=== PATIENT | female | born 1970 | race Caucasian/White ===

== ENCOUNTER → 2020-03-28 12:18 | Outpatient (CLI) | payer BC, SELFPAY ==
--- NOTE | 2020-03-28 12:31 | XR_ITS ---
PROCEDURE: XR RIBS RT MIN 3V W CXR1V Patient Age:49Y CLINICAL INDICATION: RIGHT RIB PAIN Right chest pain 2 years. No known injury COMPARISON: No exams were available for comparison FINDINGS: FRONTAL CXR view of the chest shows. No active disease. No pneumonia... No pneumothorax no pleural effusion.. Incidental note is made of 11 mm solitary lung nodule projected over the inferior margin of the anterior 2nd rib, midclavicular line on the frontal projection. This nodule seen and further confirmed at [facility] on oblique views. Moderate density could be a granuloma but no definitive calcification by CXR. Thus CT chest recommended, if no prior chest studies available elsewhere to confirm stability Multiple views of the RIGHT RIBS were obtained. No acute findings., no fracture or rib lesion evident. Vague bilateral breast implants incidentally noted. Views of thoracic spine show no acute findings, no prominent findings. only note developing marginal osteophytes anterior and to the right throughout mid and lower T-spine. IMPRESSION: 1..Incidental 11 mm solitary lung nodule left upper lobe . Recommend CT chest to further evaluate particular with history of smoking (unless outside CXR available to shows this is a stable feature.) 2..right Ribs Intact/. Negative right ribs and right chest Dictated by: Russell Delgado MD 03/28/2020 14:17 Electronically signed by Russell Delgado MD in [facility] 03/28/2020 14:17
== END ==
PROVIDERS: PCP Family Medicine; Referring Provider Family Medicine; Visit Provider Family Medicine
DX: R07.81 Pleurodynia (principal)
CPT/HCPCS: 71101

== ENCOUNTER → 2020-04-06 13:39 | Outpatient (CLI) | payer BC, SELFPAY ==
--- NOTE | 2020-04-06 13:45 | CT_ITS ---
PROCEDURE: CT CHEST W CON CLINCAL INDICATION: LUNG NODULE, SOLITARY Solitary pulmonary nodule COMPARISON: XR RIBS RT MIN 3V W CXR1V from 03/28/2020 TECHNIQUE: IV Contrast: 75ml Optiray 350 Axial images obtained with sagittal and coronal reformats. All CT scans at the facility use one or more dose reduction, viz: automated exposure control, ma/kV adjustment per patient size (including targeted exams where dose is matched to indication, i.e. head), or iterative reconstruction technique. FINDINGS: HEART AND MEDIASTINAL STRUCTURES: There are a few small mediastinal nodes measuring up to 14 mm in the pre carinal region and 10 x 6 mm in the AP window area. No evidence of aortic aneurysm or dissection. LUNGS AND PLEURAL SPACES: Changes of COPD. There is a 6 mm noncalcified nodule in the right upper lobe centrally. Image 29 series 3 there is a noncalcified 10 mm nodule in the left upper lobe image 18 series 3 corresponding to the radiographic abnormality. There is some minimal spiculation of the margins of this nodule. No effusions or infiltrates. BONY STRUCTURES: No acute bony abnormalities apparent. UPPER ABDOMEN: There is some scarring in the upper pole both kidneys with cystic changes in the upper pole of the right kidney measuring 2.8 x 1.8 cm ADDITIONAL FINDINGS: There are bilateral subpectoral breast implants IMPRESSION: 1. There is a suspicious 10 mm noncalcified nodule in the left upper lobe. There is some minimal spiculation of the margins. Suggest PET-CT for further evaluation. In addition, there is a 6 mm nodule in the right upper lobe which may be too small to be evaluated by PET-CT. 2. COPD with other nonacute findings as described above. Dictated b Indio Crawford MD 04/07/2020 18:32 Indio Crawford MD in [facility] 04/07/2020 18:32
== END ==
PROVIDERS: PCP Family Medicine; Visit Provider Family Medicine
DX: R91.1 Solitary pulmonary nodule (principal)
CPT/HCPCS: 71260; Q9967

== ENCOUNTER 2020-05-01 10:00 | Outpatient (RCR) | payer BC, SELFPAY ==
--- NOTE | 2020-04-06 13:49 | HMH.OTOPEV ---
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 Pt explains she has been having symptoms of tingling/numbness of both hands for ~3 years now . Normally pt's symptoms begin when she has been using hands for a while. Pt demonstrates with a slight decrease of arom in bilateral wrist extension. Pt also has decreased strength in bilateral wrists. 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 Pt is right hand dominant. Pt will continue to be seen in order to address these issues to increase functional use of bilateral hands. Chief Complaint Weakness,Decreased Enamel Burner Strength,Decreased Coordination Symptom Type Burning,Tingling Symptoms Relieved By Rest/Positioning Symptoms Aggravated By Physical Activity,Lifting Prior Functional Limitations Lifting,Housework,Dressing, Desk Work/Reading,Driving, Sleeping,Recreation Activity Current Functional Limitations None Symptom Description Intermittent,Activity Dependent Level of pain today (0-10) 4 Pain scale - at its best (0-10) 0 Pain scale - at its worst (0-10) 6 Wrist/Hand Eval Wrist Range of Motion Left Wrist Limitations of Range of Motion Muscle Weakness Wrist Extension Active Range of Motion ( 50 degrees degrees) Wrist Flexion Active Range of Motion ( 70 degrees degrees) Wrist Radial Deviation Active Range of 25 degrees Motion (degrees) Wrist Ulnar Deviation Active Range of 25 degrees Motion (degrees) Right Wrist Extension Active Range of Motion ( 50 degrees degrees) Wrist Flexion Active Range of Motion ( 65 degrees degrees) Wrist Radia
== END 2020-05-01 11:00 | disposition home or self-care (01) ==
LOC: OT 10:00
PROVIDERS: Visit Provider Family Medicine
DX: G56.03 Carpal tunnel syndrome, bilateral upper limbs (principal)
CPT/HCPCS: 97014; 97033; 97035; 97110; 97140; 97165; G0283

== ENCOUNTER → 2021-07-05 09:39 | Outpatient (CLI) | payer OTHER, SELFPAY | PROVIDERS: PCP Family Medicine; Visit Provider Nurse Practitioner | DX: Z20.822 Contact with and (suspected) exposure to COVID-19 (principal) | CPT/HCPCS: C9803; U0003; U0005 ==

== ENCOUNTER → 2021-07-23 11:53 | Outpatient (CLI) | payer SELFPAY ==
--- NOTE | 2021-07-23 11:57 | XR_ITS ---
PROCEDURE: XR LUMBAR SPINE MIN 4V CLINICAL INDICATION: ACUTE RT-SIEDED LOW BACK PAIN W/ RT SIDED SCIATICA COMPARISON: No exams were available for comparison FINDINGS: Normal alignment. No acute fracture or dislocation. Small endplate osteophytes are present at L4-5. No lytic or blastic change. Along the left lateral aspect of the L3 transverse process there is a small calcific density measuring approximately 4 mm. This could represent a ureteral calculus versus ununited ossification center of the tip of the transverse process. Degenerative changes left SI joint with mild sclerosis. Facet hypertrophic changes from L3-S1. IMPRESSION: Degenerative changes as described above. Possible left mid ureteral stone Dictated by: Indio Crawford MD 07/23/2021 14:49 Indio Crawford MD in [facility] 07/23/2021 14:49
== END ==
PROVIDERS: PCP Family Medicine; Visit Provider Nurse Practitioner Family
DX: M54.41 Lumbago with sciatica, right side (principal)
CPT/HCPCS: 72110

== ENCOUNTER → 2022-01-03 13:03 | Outpatient (CLI) | payer OTHER, SELFPAY ==
--- NOTE | 2022-01-03 13:37 | MM_ITS ---
PROCEDURE INFORMATION: Exam: MG Bilateral Screening 3D Mammography Exam date and time: 01/03/2022 1:32 PM Age: 51 years old Clinical indication: Screening examination. Her maternal grandmother had post menopausal breast cancer. TECHNIQUE: Imaging protocol: Bilateral Screening tomosynthesis and 2D mammography including computer-aided detection (CAD) when performed. COMPARISON: No relevant prior studies available. If prior mammograms are provided, I am happy to add an addendum. FINDINGS: MAMMOGRAPHY: Breast composition: The breasts are heterogeneously dense, which may obscure small masses. Mass: Possible 1.6 cm rounded mass, partly obscured, in the left upper outer quadrant posterior 3rd, best seen in the MLO image [id number], frame 10 than in the CC image 1377, frame 17. Architectural distortion: None. Calcifications: No suspicious calcifications. Asymmetric density: None. Skin thickening: None. Axillary adenopathy: None. Implants: Subpectoral saline implants. IMPRESSION: Patient to be recalled for left diagnostic mammogram with CCand MLO spot compression as well as left breast ultrasound for further evaluation of possible left breast mass. ASSESSMENT: BI-RADS Category 0: Incomplete- Need Additional Imaging Evaluation and/or Prior Mammograms for Comparison
== END ==
PROVIDERS: PCP Family Medicine; Visit Provider Family Medicine
DX: Z12.31 Encounter for screening mammogram for malignant neoplasm of breast (principal)
CPT/HCPCS: 77063; 77067

== ENCOUNTER → 2022-05-20 13:44 | Outpatient (CLI) | payer OTHER, SELFPAY ==
--- NOTE | 2022-05-20 13:47 | MM_ITS ---
PROCEDURE INFORMATION: Exam: US Left Breast, Complete MG Left Diagnostic Breast Tomosynthesis Exam date and time: 05/20/2022 2:43 PM Age: 51 years old Clinical indication: Recall on the basis of screening mammogram 01/03/2022 for further evaluation of possible left breast mass. TECHNIQUE: Imaging protocol: Complete ultrasound of all four quadrants of the Left breast and the retroareolar regions, including ultrasound of the axilla when performed. Left Diagnostic tomosynthesis and 2D mammography including computer-aided detection (CAD) when performed. Unilateral or bilateral exam. COMPARISON: MG MM DIG MAMM DX UNILAT LT CAD 05/20/2022 1:47 PM FINDINGS: MAMMOGRAPHY: Rounded 1.6 cm mass in the upper outer quadrant posterior 3rd is less well seen on the 2D spot compression which may be from positioning as well. ULTRASOUND: Left sonography, all 4 quadrants, retroareolar and axilla. Corresponding to the palpable concern at 2 o'clock 4 cm from the nipple is an oval heterogeneous mass measuring 1.5 x 0.9 x 1.5 cm with no related Doppler flow, and is the best correlate for the mammographic mass - this may be complex cystic or solid. Scattered likely complicated cysts are noted at 3 o'clock 3 cm from the nipple measuring 0.5 x 0.2 x 0.4 cm, at 4 o'clock 3 cm from the nipple measuring 0.5 by 0.4 x 0.2 cm, at 5 o'clock 2 cm from the nipple measuring 0.5 x 0.4 by 0.5 cm, at 6 o'clock 4 cm from nipple measuring 0.4 x 0.3 x 0.3 cm. Partly visualized breast implant. Sonographically unremarkable left axillary lymph nodes. IMPRESSION: Recommend ultrasound-guided biopsy of palpable mass at 2 o'clock with correlation to ensure that the ultrasound placed clip corresponds to the mammographic mass. Suggest six-month follow-up of probably benign scattered complicated cysts - management may be modified by biopsy results. ASSESSMENT: BI-RADS Category 4: Suspicious
== END ==
PROVIDERS: PCP Family Medicine; Visit Provider Obstetrics & Gynecology Gynecology
DX: N63.25 Unspecified lump in the left breast, overlapping quadrants (principal)
CPT/HCPCS: 76641; 77061; 77065; G0279

== ENCOUNTER → 2022-06-09 09:42 | Outpatient (CLI) | payer OTHER, SELFPAY ==
--- NOTE | 2022-06-09 09:48 | US_ITS ---
FINAL REPORT CLINICAL HISTORY: lt breast bx Biopsy cancelled - received images from [facility] and palp area has been followed there for 3 years or more. FINDINGS: LEFT BREAST ULTRASOUND FINDINGS: Patient arrives for biopsy of left breast mass located at 2:00 superficially. However the patient reported previous evaluation of this same mass at outside facility at least 2 years earlier. The outside images were acquired from [facility]. The lesion is demonstrated to be stable or even slightly smaller since 2018. This is compatible with benign etiology such as fibroadenoma. The mass measures up to 1.5 cm. IMPRESSION: Superficial left breast mass reevaluated with outside comparison films available showing the mass to be stable to slightly smaller for at least 4 years BI-RADS 2: Benign RECOMMENDATION: Annual mammography Authenticated and ERN
== END ==
PROVIDERS: PCP Family Medicine; Visit Provider Obstetrics & Gynecology Gynecology
DX: N63.25 Unspecified lump in the left breast, overlapping quadrants (principal)
CPT/HCPCS: 76642